=== PATIENT | female | born 1985 | race Caucasian/White ===

== ENCOUNTER 2018-01-06 09:09 | Emergency (ER) | payer MEDICAID, OTHER ==
[~2018-01-06] VITALS: Ht 147.3 cm; Wt 34.0 kg
[2018-01-06] MEDS ORDERED: LORazepam 2MG/ML-1ML VIAL IV ONE (09:45)
[2018-01-06] MEDS ORDERED: SODIUM CHLORIDE 0.9% 1,000 ML IV ONE (09:45)
[2018-01-06 10:00] LABS: Urine Bacteria FEW /hpf (None Seen); Urine Blood Negative /uL (Negative); Urine Specific Gravity 1.004 (1.001-1.035); Urine WBC 7 /hpf (0 - 5)
[2018-01-06 10:08] LABS: Basophils # (auto) 0.1 uL; Basophils % (auto) 1.2 % (0.0-2.0); Eosinophils # (auto) 0.1 uL; Hematocrit 43.1 % (36.0-46.0); Hemoglobin 14.2 g/dL (12.2-16.2); Lymphocytes # (auto) 1.4 uL; Lymphocytes % (auto) 21.3 % (10.0-50.0); Mean Corpuscular Hemoglobin 27.8 pg (28.0-32.0); Mean Corpuscular Volume 84.1 fL (80.0-100.0); Monocytes # (auto) 0.7 uL; Monocytes % (auto) 10.9 % (0.0-12.0); Neutrophils # (auto) 4.2 uL; Neutrophils % (auto) 64.6 % (37.0-80.0); Nucleated Red Blood Cells % 0.1 %; Platelet Count (auto) 301 10^3/uL (140-450); Red Blood Cells 5.12 10^6/uL (4.0-5.20); Red Cell Distribution Width 16.7 % (11.8-14.3); White Blood Cell 6.5 10^3/uL (4.4-10.8)
[2018-01-06 10:10] LABS: Albumin 3.9 g/dL (3.4-5.0); Potassium 3.9 mmol/L (3.5-5.1)
[2018-01-06 10:13] LABS: BUN/Creatinine Ratio 8.6; Bilirubin, Total 0.6 mg/dL (0.2-1.0); Total Protein 7.6 g/dL (6.4-8.2)
[2018-01-06 11:51] VITALS: BP 94/58
== END 2018-01-06 12:19 | disposition home or self-care (01) ==
LOC: ER 09:09
DX: N39.0 Urinary tract infection, site not specified (principal); F41.9 Anxiety disorder, unspecified
CPT/HCPCS: 36415; 80053; 81001; 81025; 85025; 93005; 96374; 99285; J2060; J7030; 96361

== ENCOUNTER 2018-01-18 13:01 | Emergency (ER) | payer MEDICAID ==
[~2018-01-18] VITALS: Ht 147.3 cm; Wt 34.0 kg
[2018-01-18 13:36] VITALS: BP 127/79
== END 2018-01-18 15:12 | disposition left against medical advice (07) ==
LOC: ER 13:03
DX: F41.9 Anxiety disorder, unspecified (principal)

== ENCOUNTER 2018-01-19 14:33 | Emergency (ER) | payer MEDICAID ==
[~2018-01-19] VITALS: Ht 147.3 cm; Wt 34.0 kg
[2018-01-19 15:05] VITALS: BP 119/74
== END 2018-01-19 15:26 | disposition home or self-care (01) ==
LOC: ER 14:33
DX: F41.1 Generalized anxiety disorder (principal); F20.9 Schizophrenia, unspecified